=== PATIENT | female | born 1945 | race Caucasian/White ===

== ENCOUNTER 2019-04-09 13:52 | Outpatient (CLI) | payer MEDICARE, BC ==
[2019-04-09 14:41] LABS: BASOPHILS # (AUTO) 0.1 X10'3 (0-0.2); BASOPHILS % (AUTO) 1.6 % (0-1); EOSINOPHILS # (AUTO) 0.1 X10'3 (0-0.9); EOSINOPHILS % (AUTO) 1.6 % (0-6); HEMATOCRIT 38.7 % (35.0-45.0); HEMOGLOBIN 13.2 g/dl (12.0-16.0); LYMPHOCYTES % (AUTO) 31.2 % (21-51); MEAN CORPUSCULAR HEMOGLOBIN 30.3 PG (27.0-31.0); MEAN CORPUSCULAR HGB CONC 34.1 g/dL (33.0-36.5); MEAN CORPUSCULAR VOLUME 88.9 FL (78-98); MEAN PLATELET VOLUME 8.9 FL (7.4-10.4); MONOCYTES # (AUTO) 0.4 X10'3 (0-0.9); NEUTROPHILS # (AUTO) 3.9 X10'3 (1.8-7.7); NEUTROPHILS % (AUTO) 59.6 % (42-75); PLATELET COUNT 218 X10'3 (140-440); RED BLOOD COUNT 4.36 X10'6 (4.20-5.60); RED CELL DISTRIBUTION WIDTH 14.9 % (11.5-14.5); WHITE BLOOD COUNT 6.6 X10'3 (4.5-11.0)
[2019-04-09 14:54] LABS: ALANINE AMINOTRANSFERASE 40 U/L (12-78); ALBUMIN 3.5 G/DL (3.4-5.0); ALKALINE PHOSPHATASE 91 IU/L (46-116); ANION GAP 10 (8-16); ASPARTATE AMINO TRANSFERASE 26 U/L (10-37); BILIRUBIN,TOTAL 0.8 MG/DL (0.1-1.0); BLOOD UREA NITROGEN 11 MG/DL (7-18); BUN/CREATININE RATIO 18.3 (6.6-38.0); CALCIUM 8.8 MG/DL (8.5-10.1); CHLORIDE 104 MMOL/L (99-107); GLUCOSE 104 MG/DL (70-104); POTASSIUM 3.9 MMOL/L (3.5-5.1); SODIUM 142 MMOL/L (135-145); TOTAL PROTEIN 7.1 G/DL (6.4-8.2); eGFR > 90 ML/MIN
[2019-04-09 14:58] LABS: PARTIAL THROMBOPLASTIN TIME 40 SECONDS (22-32)
== END 2019-04-09 23:59 | disposition home or self-care (01) ==
LOC: LAB 13:52
PROVIDERS: ATTEND Otolaryngology
DX: D69.1 Qualitative platelet defects (principal); Z87.891 Personal history of nicotine dependence
CPT/HCPCS: 36415; 80053; 85025; 85576; 85610; 85730

== ENCOUNTER 2024-01-15 05:36 | Day surgery (SDC) | payer MEDICARE, BC ==
[2023-12-31 13:43] LABS: BILIRUBIN,URINE NEGATIVE (Neg); CLARITY,URINE CLEAR (Clear); COLOR,URINE YELLOW (Yellow); GLUCOSE, URINE NEGATIVE (Neg); KETONES,URINE NEGATIVE (Neg); LEUKOCYTE ESTERASE ,URINE SMALL (Neg); NITRITES, URINE NEGATIVE (Neg); OCCULT BLOOD,URINE NEGATIVE (Neg); PROTEIN,URINE NEGATIVE (Neg); UROBILINOGEN,URINE 0.2 E.U/dL (0.2-1.0)
[2023-12-31 13:45] LABS: UA COLLECTION TYPE VOIDED
[2023-12-31 14:01] LABS: BACTERIA,URINE NONE SEEN /HPF (Neg); MUCUS STRANDS NONE SEEN /LPF (Neg); RBC,URINE NONE SEEN /HPF (0-2); SQUAMOUS EPITHELIAL CELL,UR FEW /LPF (FEW); WBC,URINE 0-4 /HPF (0-4)
[2023-12-31 14:02] LABS: TRANSITIONAL EPI CELLS,URINE FEW /HPF
[2023-12-31 14:02] LABS: BASOPHILS % (AUTO) 0.8 % (0-1); EOSINOPHILS # (AUTO) 0.2 X10'3 (0-0.9); EOSINOPHILS % (AUTO) 2.6 % (0-6); LYMPHOCYTES # (AUTO) 1.5 X10'3 (1.1-4.8); LYMPHOCYTES % (AUTO) 23.6 % (21-51); MEAN CORPUSCULAR HEMOGLOBIN 27.1 PG (27.0-31.0); MEAN CORPUSCULAR HGB CONC 32.7 g/dL (33.0-36.5); MEAN CORPUSCULAR VOLUME 82.9 FL (78-98); MONOCYTES # (AUTO) 0.4 X10'3 (0-0.9); MONOCYTES % (AUTO) 6.8 % (2-12); NEUTROPHILS # (AUTO) 4.1 X10'3 (1.8-7.7); NEUTROPHILS % (AUTO) 66.2 % (42-75); PRE OP HEMOGLOBIN 14.1 g/dL (12.0-16.0); PRE OP PLATELET COUNT 240 X10'3 (140-440); PRE OP WHITE BLOOD COUNT 6.2 10'3 (4.8-10.8); RED BLOOD COUNT 5.19 X10'6 (4.20-5.60); RED CELL DISTRIBUTION WIDTH 16.1 % (11.5-14.5)
[2023-12-31 14:21] LABS: HEMOGLOBIN A1C 6.6 % (4.5-6.2)
[2023-12-31 14:22] LABS: ALBUMIN 4.1 G/DL (3.4-5.0); ALBUMIN/GLOBULIN RATIO 1.1 (1.1-1.5); ALKALINE PHOSPHATASE 126 IU/L (46-116); BLOOD UREA NITROGEN 53 MG/DL (7-18); BUN/CREATININE RATIO 42.1 (10.0-20.0); CALCIUM 10.1 MG/DL (8.5-10.1); CHLORIDE 97 MMOL/L (99-107); CREATININE 1.26 MG/DL (0.40-0.90); PRE OP ALT 34 U/L (30-65); PRE OP ANION GAP 7 (8-16); PRE OP AST 26 U/L (10-37); PRE OP BILIRUB, TOTAL 0.9 MG/DL (0.0-1.0); PRE OP GLUCOSE 124 MG/DL (70-104); PRE OP POTASSIUM 3.6 MMOL/L (3.4-5.1); PRE OP SODIUM 136 MMOL/L (135-145); TOTAL CARBON DIOXIDE 32.3 MMOL/L (24-32); eGFR 41 ML/MIN
[~2024-01-15] VITALS: Ht 157.5 cm; Wt 84.3 kg
[2024-01-15] VITALS (21 sets, daily range): BP systolic 84–129; BP diastolic 35–78; PULSE 67–101; RESP 10–19; TEMP 97.1–98.1; O2SAT 92–100
[2024-01-15] MEDS: DOCUMENT DATE & TIME OF BETA-BLOCKER PO ONE (05:30)
[2024-01-15] MEDS: tranexamic acid inj. 1,000 MG in normal saline IV soln 100ML IV ONE (05:30)
[2024-01-15] MEDS: cefazolin 2gm/D5W 100mL 100 ML IV ONE (05:30)
[~2024-01-15 05:36] MED LIST: BACL10TA2 PO; CHOL50004 PO; CYAN-34 PO; DILT180C76 PO; DULO30CA52 PO; FURO80TA3 PO; METO50TA16; METO50TA16 PO; OMEP20CA16 PO; PIOG30TA71 PO; POTA8CAP20 PO; ROSU20TA73 PO; SPIR25TA5 PO; WARF2.5T9 PO; WARF5TAB9 PO; ZAR2.5T
[2024-01-15] MEDS ORDERED: ondansetron/PF 4mg/2ml inj IV PRN ×3 (07:10→14:15)
[2024-01-15] MEDS ORDERED: HYDROcodone/acetaminophen 5mg/325mg tablet PO PRN (07:10)
[2024-01-15] MEDS ORDERED: acetaminophen 325mg tablet PO PRN (07:10)
[2024-01-15] MEDS ORDERED: bisacodyl 10mg suppository rectal RC PRN (07:10)
[2024-01-15] MEDS ORDERED: diphenhydrAMINE 25mg capsule PO PRN (07:10)
[2024-01-15] MEDS: cloNIDine hcl/PF 100mcg/ml inj ONE (07:10)
[2024-01-15] MEDS: potassium cl 20mEq in 1/2 NS 1,000 ML IV SCH (07:10)
[2024-01-15] MEDS ORDERED: naloxone 0.4 mg/ml inj IV PRN (07:10)
[2024-01-15] MEDS: ringers solution, lacted 1,000 ML IV SCH ×2 (07:13→10:10)
[2024-01-15] MEDS: gelatin sponge, absorbable (Gelfoam 100) sponge TP ONE (07:13)
[2024-01-15] MEDS: methylene blue (5mg/ml) 50mg/10ml ampul IV ONE (07:13)
[2024-01-15] MEDS: Thrombin (Bovine) 5,000 unit vial TP ONE (07:13)
[2024-01-15] MEDS ORDERED: midazolam 1 mg/ML 2ml injection ONE (07:14)
[2024-01-15] MEDS ORDERED: fentaNYL/PF 50MCG/1 ML 2ML syringe ONE (07:14)
[2024-01-15] MEDS ORDERED: propofol inj 20 ML IV ONE (07:16)
[2024-01-15] MEDS ORDERED: ROPIVAcaine 0.5% (5mg/ml) 30ml vial ONE (07:16)
[2024-01-15] MEDS: famotidine 20mg tablet PO ONE (07:21)
[2024-01-15] MEDS ORDERED: sevoflurane 250ml liquid IH ONE (07:24)
[2024-01-15 07:26] LABS: PRE OP INR 1.1 INR; PRE OP PROTIME 11.8 SECONDS (9.0-12.0)
[2024-01-15] MEDS: famotidine 20mg tablet ONE (07:40)
[2024-01-15] MEDS: vancomycin 1,000mg inj ONE (08:24)
[2024-01-15] MEDS ORDERED: meperidine/PF 25mg/ml syringe IV PRN ×2 (09:00)
[2024-01-15] MEDS ORDERED: proCHLORperazine 10 MG/2 ml inj IV PRN ×2 (09:00→14:15)
[2024-01-15] MEDS ORDERED: morphine 2 MG/ML inj. syringe IV PRN (09:00)
[2024-01-15] MEDS ORDERED: dexamethasone sod phosphate 4mg/ml inj. ONE (09:43)
[2024-01-15] MEDS ORDERED: ondansetron/PF 4mg/2ml inj ONE (09:43)
[2024-01-15] MEDS: meperidine/PF 25mg/ml syringe IV PRN (10:16)
[2024-01-15] MEDS: morphine 4 MG/ML inj SYRINge IV PRN (10:27)
[2024-01-15] MEDS: acetaminophen 1,000mg/100ml IV 100 ML IV ONE (10:28)
[2024-01-15] MEDS: HYDROcodone/acetaminophen 5mg/325mg tablet PO PRN (10:53)
[2024-01-15 13:38] LABS: INR 1.1 INR; PROTHROMBIN TIME 11.9 SECONDS (9.0-12.0)
[2024-01-15] MEDS ORDERED: ringers solution, lacted 1,000 ML IV SCH (14:15)
[2024-01-15] MEDS ORDERED: fentaNYL/PF 50MCG/1 ML 2ML syringe IV PRN ×2 (14:15)
[2024-01-15] MEDS ORDERED: HYDROmorphone/PF 0.2 MG/ML SYRINGE IV PRN ×2 (14:15)
[2024-01-15] MEDS: potassium chloride 8mEq ER tablet PO SCH ×2 (17:30→21:24)
[2024-01-15] MEDS ORDERED: glucagon, human recombinant 1mg kit SUBCUT PRN (18:30)
[2024-01-15] MEDS ORDERED: DEXTROSE 15 GM of carb/4 tabs (each vial/BOTTLE has 4 tablets) PO PRN ×2 (18:30)
[2024-01-15] MEDS ORDERED: dextrose 50%-water 50ml dispensing syringe IV PRN ×2 (18:30)
[2024-01-15] MEDS: cefazolin 2gm/D5W 100mL 100 ML IV SCH (21:20)
[2024-01-15] MEDS: duloxetine 30mg CAPSULE.DR PO SCH (21:24)
[2024-01-15] MEDS: diltiazem CD 180mg cap (once-daily) PO SCH (21:24)
[2024-01-15] MEDS: atorvastatin 20mg tablet PO SCH (21:24)
[2024-01-15] MEDS: metoprolol tartrate 50mg tablet PO SCH (21:25)
[2024-01-15] MEDS: spironolactone 25 MG tablet PO SCH (21:25)
[2024-01-15] MEDS: INSULIN LISPRO 100 UNIT/ML INSULN.PEN MULTI-DOSE SQ SCH (23:00)
[2024-01-16 02:00] VITALS: BP 110/54; PULSE 87; RESP 16; TEMP 97.7; O2SAT 92
[2024-01-16 06:00] VITALS: BP 111/45; PULSE 78; RESP 18; TEMP 97.3; O2SAT 91
[2024-01-16 06:24] LABS: BASOPHILS % (AUTO) 0.2 % (0-1); EOSINOPHILS % (AUTO) 0 % (0-6); HEMATOCRIT 37.9 % (35.0-45.0); HEMOGLOBIN 12.2 g/dl (12.0-16.0); LYMPHOCYTES # (AUTO) 0.6 X10'3 (1.1-4.8); LYMPHOCYTES % (AUTO) 4.7 % (21-51); MEAN CORPUSCULAR HEMOGLOBIN 27.1 PG (27.0-31.0); MEAN CORPUSCULAR HGB CONC 32.2 g/dL (33.0-36.5); MEAN CORPUSCULAR VOLUME 84.3 FL (78-98); MEAN PLATELET VOLUME 8.7 FL (7.4-10.4); MONOCYTES # (AUTO) 0.9 X10'3 (0-0.9); MONOCYTES % (AUTO) 7.4 % (2-12); NEUTROPHILS # (AUTO) 10.7 X10'3 (1.8-7.7); NEUTROPHILS % (AUTO) 87.7 % (42-75); PLATELET COUNT 204 X10'3 (140-440); RED BLOOD COUNT 4.49 X10'6 (4.20-5.60); WHITE BLOOD COUNT 12.2 X10'3 (4.5-11.0)
[2024-01-16 06:34] LABS: INR 1.1 INR; PROTHROMBIN TIME 11.3 SECONDS (9.0-12.0)
[2024-01-16 06:55] LABS: ALANINE AMINOTRANSFERASE 22 U/L (12-78); ALBUMIN 3.1 G/DL (3.4-5.0); ALBUMIN/GLOBULIN RATIO 0.9 (1.1-1.5); ALKALINE PHOSPHATASE 101 IU/L (46-116); ANION GAP 7 (8-16); ASPARTATE AMINO TRANSFERASE 20 U/L (10-37); BILIRUBIN,TOTAL 0.6 MG/DL (0.1-1.0); BLOOD UREA NITROGEN 39 MG/DL (7-18); BUN/CREATININE RATIO 34.8 (10.0-20.0); CALCIUM 9.5 MG/DL (8.5-10.1); CHLORIDE 98 MMOL/L (99-107); CREATININE 1.12 MG/DL (0.40-0.90); GLUCOSE 131 MG/DL (70-104); POTASSIUM 4.1 MMOL/L (3.5-5.1); SODIUM 134 MMOL/L (135-145); TOTAL CARBON DIOXIDE 29.4 MMOL/L (24-32); TOTAL PROTEIN 6.5 G/DL (6.4-8.2); eCRCL 33 ML/MIN; eGFR 47 ML/MIN
[2024-01-16] MEDS: cholecalciferol (vitamin D3) 1,000 unit (25mcg) tablet PO SCH (07:53)
[2024-01-16] MEDS: metoprolol tartrate 50mg tablet PO SCH (07:55)
[2024-01-16] MEDS: cyanocobalamin 500mcg tablet PO SCH (07:56)
[2024-01-16] MEDS: pantoprazole 40mg Tablet.DR PO SCH (07:56)
[2024-01-16] MEDS: furosemide 40mg tablet PO SCH (07:56)
[2024-01-16] MEDS: pioglitazone 15mg tablet PO SCH (07:58)
[2024-01-16] MEDS ORDERED: warfarin 5mg tablet PO SCH (08:00)
[2024-01-16] MEDS: INSULIN LISPRO 100 UNIT/ML INSULN.PEN MULTI-DOSE SQ SCH (08:00)
[2024-01-16 10:00] VITALS: BP 128/62; PULSE 97; RESP 14; TEMP 97.3; O2SAT 95
[2024-01-16 18:00] VITALS: BP 102/51; PULSE 79; RESP 17; TEMP 98.1; O2SAT 96
[2024-01-16] MEDS: magnesium hydroxide 30ml (MOM) UD suspension PO PRN (19:18)
[2024-01-16 20:00] VITALS: RESP 17; O2SAT 96
[2024-01-16] MEDS: warfarin 5mg tablet PO ONE (21:26)
[2024-01-16] MEDS: baclofen 10mg tablet PO PRN (21:27)
[2024-01-16 22:31] VITALS: BP 117/46; PULSE 75; RESP 14; TEMP 97.6; O2SAT 95
[2024-01-17 05:52] LABS: PROTHROMBIN TIME 10.8 SECONDS (9.0-12.0)
[2024-01-17 05:54] LABS: BASOPHILS # (AUTO) 0.1 X10'3 (0-0.2); BASOPHILS % (AUTO) 0.6 % (0-1); EOSINOPHILS % (AUTO) 0.3 % (0-6); HEMATOCRIT 35.9 % (35.0-45.0); HEMOGLOBIN 11.9 g/dl (12.0-16.0); LYMPHOCYTES # (AUTO) 1.2 X10'3 (1.1-4.8); LYMPHOCYTES % (AUTO) 13.4 % (21-51); MEAN CORPUSCULAR HEMOGLOBIN 27.6 PG (27.0-31.0); MEAN CORPUSCULAR HGB CONC 33.1 g/dL (33.0-36.5); MEAN CORPUSCULAR VOLUME 83.5 FL (78-98); MEAN PLATELET VOLUME 9.1 FL (7.4-10.4); MONOCYTES # (AUTO) 0.7 X10'3 (0-0.9); MONOCYTES % (AUTO) 8.6 % (2-12); NEUTROPHILS # (AUTO) 6.6 X10'3 (1.8-7.7); NEUTROPHILS % (AUTO) 77.1 % (42-75); PLATELET COUNT 192 X10'3 (140-440); RED CELL DISTRIBUTION WIDTH 15.9 % (11.5-14.5); WHITE BLOOD COUNT 8.6 X10'3 (4.5-11.0)
[2024-01-17 06:00] VITALS: BP 103/53; PULSE 71; RESP 16; TEMP 97.5; O2SAT 92
[2024-01-17 06:03] LABS: ALANINE AMINOTRANSFERASE 15 U/L (12-78); ALBUMIN 2.9 G/DL (3.4-5.0); ALBUMIN/GLOBULIN RATIO 0.8 (1.1-1.5); ALKALINE PHOSPHATASE 84 IU/L (46-116); ANION GAP 7 (8-16); ASPARTATE AMINO TRANSFERASE 21 U/L (10-37); BILIRUBIN,TOTAL 0.6 MG/DL (0.1-1.0); BLOOD UREA NITROGEN 39 MG/DL (7-18); BUN/CREATININE RATIO 39.8 (10.0-20.0); CHLORIDE 99 MMOL/L (99-107); CREATININE 0.98 MG/DL (0.40-0.90); GLUCOSE 113 MG/DL (70-104); POTASSIUM 4.1 MMOL/L (3.5-5.1); SODIUM 138 MMOL/L (135-145); TOTAL CARBON DIOXIDE 32.1 MMOL/L (24-32); TOTAL PROTEIN 6.4 G/DL (6.4-8.2); eCRCL 38 ML/MIN; eGFR 55 ML/MIN
[2024-01-17] MEDS: metolazone 2.5mg tablet PO SCH (07:10)
[2024-01-17 07:11] VITALS: BP_SYST 131; PULSE 80
[2024-01-17 07:13] VITALS: RESP 15
[2024-01-17] MEDS ORDERED: warfarin 2.5mg tablet PO SCH (08:00)
== END 2024-01-17 13:08 | disposition home or self-care (01) ==
LOC: PAS 05:36 → ORTHO 4S 12:05 → PAS 01-17 13:08
PROVIDERS: ATTEND Specialist
DX: M19.012 Primary osteoarthritis, left shoulder (principal); G89.18 Other acute postprocedural pain; E11.9 Type 2 diabetes mellitus without complications; E66.9 Obesity, unspecified; E78.5 Hyperlipidemia, unspecified; I48.91 Unspecified atrial fibrillation; M79.7 Fibromyalgia; G47.33 Obstructive sleep apnea (adult) (pediatric); I50.9 Heart failure, unspecified; M19.90 Unspecified osteoarthritis, unspecified site; Z87.891 Personal history of nicotine dependence; Z79.01 Long term (current) use of anticoagulants; Z79.899 Other long term (current) drug therapy; Z90.49 Acquired absence of other specified parts of digestive tract; Z90.710 Acquired absence of both cervix and uterus; Z90.89 Acquired absence of other organs; Z96.653 Presence of artificial knee joint, bilateral; Z98.890 Other specified postprocedural states; Z68.34 Body mass index [BMI] 34.0-34.9, adult; Z82.3 Family history of stroke; Z80.8 Family history of malignant neoplasm of other organs or systems
CPT/HCPCS: 23430; 23472; 36415; 64415; 71046; 72040; 73030; 80053; 81001; 82948; 83036; 85025; 85610; 85730; 86885; 86900; 86901; 87081; 87088; 93005; 97110; 97530; 97535; A4615; A4618; A6402; A6455; A7000; C1776; J0131; J0690; J0735; J1100; J1815; J2175; J2250; J2270; J2405; J2704; J2795; J3010; J3370; J3480; J3490; J7030; J7120; Z7506; Z7508; Z7512; Z7610; 76000; A6449; G0378; Q9968

== ENCOUNTER 2024-02-02 10:47 | Emergency (ER) | payer MEDICARE, BC ==
[~2024-02-02] VITALS: Ht 157.5 cm; Wt 73.6 kg
[2024-02-02 10:52] VITALS: TEMP 97.3
--- NOTE | 2024-02-02 11:47 | NUR ---
pt to [facility]
[2024-02-02] MEDS: HYDROcodone/acetaminophen 10/325mg tab PO ONE (12:05)
[2024-02-02 12:57] VITALS: BP 120/59; PULSE 76; RESP 15; O2SAT 95
== END 2024-02-02 12:59 | disposition home or self-care (01) ==
LOC: ER 10:47
DX: S42.92XA Fracture of left shoulder girdle, part unspecified, initial encounter for closed fracture (principal); M25.512 Pain in left shoulder; Z79.899 Other long term (current) drug therapy; Z79.01 Long term (current) use of anticoagulants; X58.XXXA Exposure to other specified factors, initial encounter; Y93.89 Activity, other specified; Y92.89 Other specified places as the place of occurrence of the external cause; Y99.8 Other external cause status
CPT/HCPCS: 73030; 73200; 99284